=== PATIENT | male | born 1950 | race African-American/Black ===

== ENCOUNTER 2023-08-18 06:29 | Day surgery (SDC) | payer OTHER ==
[~2023-08-18] VITALS: Ht 185.4 cm; Wt 68.0 kg
[2023-08-18] MEDS ORDERED: ceFAZolin SODIUM 2 GM in D5W 100 ML IV ONE (07:00)
[2023-08-18] MEDS ORDERED: ACETAMINOPHEN I.V. 1000 MG 100 ML IV ONE (07:39)
[2023-08-18] MEDS ORDERED: fentaNYL CITRATE/PF 100 MCG/2 ML AMP ONE ×2 (07:39→07:41)
[2023-08-18] MEDS ORDERED: ePHEDrine sulfate 50 MG/ML VIAL ONE (07:41)
[2023-08-18] MEDS ORDERED: SEVOFLURANE 15 MIN GAS INH ONE (07:41)
[2023-08-18] MEDS ORDERED: NS 1000 ML IV.SOLN IV ONE (07:41)
[2023-08-18] MEDS ORDERED: NS IRRIG SOLN 1000 ML IR ONE (07:41)
[2023-08-18] MEDS ORDERED: WATER FOR IRRIGATION,STERILE 1,000 ML IRRIG.SOLN IR ONE (07:41)
[2023-08-18] MEDS ORDERED: PHENYLEPHRINE HCL 10 MG/ML VIAL (NEOSYNEPHRINE) ONE (07:41)
[2023-08-18] MEDS ORDERED: ONDANSETRON HCL 4 MG/2 ML VIAL ONE (07:41)
[2023-08-18] MEDS ORDERED: BUPIVACAINE /PF 0.25% 30 ML VIAL INJ ONE (07:41)
[2023-08-18] MEDS ORDERED: fentaNYL CITRATE/PF 100 MCG/2 ML AMP IVP PRN ×3 (08:15)
[2023-08-18] MEDS ORDERED: NACL 0.9% 1,000 ML IV ONE (08:15)
[2023-08-18] MEDS ORDERED: ONDANSETRON HCL 4 MG/2 ML VIAL IVP PRN (08:15)
[2023-08-18 08:37] VITALS: O2SAT 96
[2023-08-18] MEDS ORDERED: D5/0.45 NS 1,000 ML IV SCH (09:15)
[2023-08-18] MEDS ORDERED: HYDROcodone/ACETAMIN 5-325 MG TAB (NORCO/ VICODIN) PO PRN ×2 (09:15)
[2023-08-18 13:40] VITALS: BP_SYST 133; PULSE 60; RESP 20
== END 2023-08-18 13:35 | disposition home or self-care (01) ==
LOC: SDS 06:29 → SMU 06:32 → SDS 13:35
PROVIDERS: ATTEND Colon & Rectal Surgery
DX: K40.30 Unilateral inguinal hernia, with obstruction, without gangrene, not specified as recurrent (principal); I12.9 Hypertensive chronic kidney disease with stage 1 through stage 4 chronic kidney disease, or unspecified chronic kidney disease; E11.22 Type 2 diabetes mellitus with diabetic chronic kidney disease; N18.9 Chronic kidney disease, unspecified; F41.9 Anxiety disorder, unspecified; M19.90 Unspecified osteoarthritis, unspecified site; Z88.2 Allergy status to sulfonamides; Z79.82 Long term (current) use of aspirin; Z79.899 Other long term (current) drug therapy; Z82.49 Family history of ischemic heart disease and other diseases of the circulatory system
CPT/HCPCS: 87081; 49507; 82948; C1781 ×2; J3490; J2405; J2370; J3010; J7060; J7030; J0131